=== PATIENT | female | born 1945 | race Caucasian/White ===

== ENCOUNTER → 2018-10-04 | Outpatient (CLI) | payer MEDICARE, OTHER ==
[~2018-10-04] MED LIST: PLAVIX75 MG PO; REGADENOSON 0.4 MG/5 ML SYR IV ONE
--- NOTE | 2018-10-05 15:35 | Cardiology Report ---
DATE OF STUDY: October 04, 2018 PROCEDURE: Nuclear myocardial perfusion scan. Nuclear myocardial perfusion scan is provided by Dr. William Vizcaino and I did the nuclear part of the stress test. Lexiscan injected at 0.4 mg intravenous stress agent. Myoview injected at 10 millicuries for stress protocol and 13 millicuries for stress protocol. IMPRESSION: Abnormal nuclear study. Inferoseptal and apical hypokinesia, which is very severe, and inferoseptal and apical ischemia noted. Abnormal study. Thank you, Dr. William Vizcaino, for this procedure/consultation. Job#: [id number]
== END ==
LOC: NM 09:39
PROVIDERS: ATTEND Internal Medicine Cardiovascular Disease
DX: R06.02 Shortness of breath (principal); I20.8 Other forms of angina pectoris
CPT/HCPCS: 78452; 93017; A9502; J2785

== ENCOUNTER 2020-12-05 06:15 | Observation (INO) | payer MEDICARE, OTHER ==
[2020-12-03 13:26] LABS: BASOPHILS # (AUTO) 0.1 (0.0-0.1); BASOPHILS % 0.4 % (0.0-1.0); EOSINOPHILS # (AUTO) 0.2 (0.0-0.4); EOSINOPHILS % 1.5 % (0.0-6.0); HEMATOCRIT 25.1 % (34.2-44.1); HEMOGLOBIN 7.6 g/dL (12.0-16.0); LYMPHOCYTES # (AUTO) 2.2 (1.0-3.2); LYMPHOCYTES % 19.4 % (18.0-39.1); MEAN CORPUSCULAR HEMOGLOBIN 27.5 pg (28-32); MEAN CORPUSCULAR HGB CONC 30.3 g/dL (31-35); MEAN CORPUSCULAR VOLUME 90.9 fL (81-99); MONOCYTES # (AUTO) 0.8 (0.2-0.8); MONOCYTES % 6.9 % (4.4-11.3); NEUTROPHILS # (AUTO) 8.1 (2.1-6.9); NEUTROPHILS % 71.5 % (38.7-80.0); PLATELET COUNT 412 x10e3/uL (140-360); RED BLOOD COUNT 2.76 x10e6/uL (3.6-5.1); RED CELL DISTRIBUTION WIDTH 17.2 % (11.7-14.4)
[2020-12-03 13:36] LABS: INR 2.03; PROTHROMBIN TIME 24.5 seconds (11.9-14.5)
[2020-12-03 13:43] LABS: ANION GAP 16.2 mmol/L (8-16); CALCIUM 8.9 mg/dL (8.4-10.2); CREATININE, SERUM 0.94 mg/dL (0.57-1.11); POTASSIUM 4.2 mmol/L (3.5-5.1)
[~2020-12-05] VITALS: Ht 198.1 cm; Wt 68.5 kg
[~2020-12-05 06:15] MED LIST changes: +ALLOPURINOL100 MG PO; +ATORVASTATIN CA20 MG PO; +CALAN SR120 MG PO; +CILOSTAZOL50 MG PO; +FAMOTIDINE20 MG PO; +FEROSUL325 MG PO; +FUROSEMIDE40 MG PO; +LYRICA100 MG PO; +NITROGLYCERIN1 EAC1 TD; -REGADENOSON 0.4 MG/5 ML SYR IV ONE; +SPIRONOLACTONE25 MG PO
[2020-12-05 07:02] VITALS: BP 120/67
[2020-12-05 07:39] LABS: BASOPHILS % 0.4 % (0.0-1.0); EOSINOPHILS # (AUTO) 0.2 (0.0-0.4); EOSINOPHILS % 2.1 % (0.0-6.0); HEMATOCRIT 24.4 % (34.2-44.1); HEMOGLOBIN 7.3 g/dL (12.0-16.0); LYMPHOCYTES # (AUTO) 1.3 (1.0-3.2); LYMPHOCYTES % 16.3 % (18.0-39.1); MEAN CORPUSCULAR HEMOGLOBIN 27.9 pg (28-32); MEAN CORPUSCULAR HGB CONC 29.9 g/dL (31-35); MEAN CORPUSCULAR VOLUME 93.1 fL (81-99); MONOCYTES # (AUTO) 0.5 (0.2-0.8); MONOCYTES % 6.7 % (4.4-11.3); NEUTROPHILS % 74.1 % (38.7-80.0); PLATELET COUNT 362 x10e3/uL (140-360); RED BLOOD COUNT 2.62 x10e6/uL (3.6-5.1); RED CELL DISTRIBUTION WIDTH 17.3 % (11.7-14.4)
[2020-12-05 07:49] LABS: INR 1.04; PROTHROMBIN TIME 14.3 seconds (11.9-14.5)
[2020-12-05 07:50] LABS: PARTIAL THROMBOPLASTIN TIME 31.4 seconds (23.8-35.5)
[2020-12-05] MEDS ORDERED: SODIUM CHLORIDE 0.9% 250ML 250 ML IV NR (08:00)
[2020-12-05 08:05] LABS: ALBUMIN 3.5 g/dL (3.5-5.0); ALBUMIN/GLOBULIN RATIO 1.2 (0.8-2.0); ANION GAP 13.7 mmol/L (8-16); CALCIUM 8.4 mg/dL (8.4-10.2); CREATININE, SERUM 1.01 mg/dL (0.57-1.11); POTASSIUM 3.7 mmol/L (3.5-5.1)
[2020-12-05 08:14] LABS: FERRITIN 142.99 ng/mL (4.63-204.00)
[2020-12-05] MEDS ORDERED: SODIUM CHLORIDE 0.9% 250ML 250 ML ONE ×2 (10:01→17:43)
[2020-12-05] MEDS ORDERED: LORAZEPAM INJ 2 MG/ML VIAL ONE (10:25)
[2020-12-05] MEDS ORDERED: CEFAZOLIN SOD 1 GM VIAL ONE (10:26)
[2020-12-05] MEDS ORDERED: FAMOTIDINE 20 MG TAB ONE (10:26)
[2020-12-05] MEDS ORDERED: SODIUM CHLORIDE 0.9% 50ML 50 ML ONE (10:26)
[2020-12-05] MEDS ORDERED: LIDOCAINE HCL 2% LOCAL 20 ML VIAL ONE ×2 (10:28→11:32)
[2020-12-05] MEDS ORDERED: SODIUM CHLORIDE 0.9% 500ML 1,000 ML ONE (10:28)
[2020-12-05] MEDS ORDERED: FENTANYL CITRATE/PF 100MCG/2 ML INJ ONE (10:28)
[2020-12-05] MEDS ORDERED: MIDAZOLAM HCL 2 MG/2 ML VIAL ONE ×2 (10:28→12:26)
[2020-12-05] MEDS ORDERED: VANCOMYCIN 1GM/NS 250 ML 250 ML ONE (11:39)
[2020-12-05 13:28] VITALS: BP 117/59
[2020-12-05 15:44] VITALS: BP 117/59
[2020-12-05 16:00] VITALS: BP 103/53
[2020-12-05] MEDS ORDERED: IRON SUCROSE 100 MG in SODIUM CHLORIDE 0.9% 100 ML 100 ML IV SCH (16:00)
[2020-12-05 16:16] VITALS: BP 117/59
[2020-12-05] MEDS ORDERED: VERAPAMIL ER120 MG PO (16:46)
[2020-12-05] MEDS ORDERED: FEROSUL325 MG PO (16:47)
[2020-12-05] MEDS: CEFAZOLIN SOD 1 GM/NS 50ML 50 ML IV SCH (17:45)
[2020-12-05] MEDS: VERAPAMIL HCL 120 MG TABSR PO SCH (17:45)
[2020-12-05] MEDS: METOPROLOL TARTRATE 25 MG TAB PO SCH (17:46)
[2020-12-05] MEDS ORDERED: CEFAZOLIN SOD 1 GM VIAL IV SCH (18:00)
[2020-12-05 20:00] VITALS: BP 107/62
[2020-12-06] VITALS: BP 114/57
[2020-12-06] MEDS: CEFAZOLIN SOD 1 GM/NS 50ML 50 ML IV SCH ×3 (00:43→12:50)
[2020-12-06 04:00] VITALS: BP 121/70
[2020-12-06 05:37] LABS: BASOPHILS % 0.5 % (0.0-1.0); EOSINOPHILS # (AUTO) 0.2 (0.0-0.4); EOSINOPHILS % 2.4 % (0.0-6.0); HEMATOCRIT 24.7 % (34.2-44.1); HEMOGLOBIN 7.6 g/dL (12.0-16.0); LYMPHOCYTES # (AUTO) 1.5 (1.0-3.2); MEAN CORPUSCULAR HEMOGLOBIN 27.6 pg (28-32); MEAN CORPUSCULAR HGB CONC 30.8 g/dL (31-35); MEAN CORPUSCULAR VOLUME 89.8 fL (81-99); MONOCYTES # (AUTO) 0.6 (0.2-0.8); MONOCYTES % 8.7 % (4.4-11.3); NEUTROPHILS # (AUTO) 4.4 (2.1-6.9); NEUTROPHILS % 66.1 % (38.7-80.0); PLATELET COUNT 352 x10e3/uL (140-360); RED BLOOD COUNT 2.75 x10e6/uL (3.6-5.1); RED CELL DISTRIBUTION WIDTH 18.2 % (11.7-14.4)
[2020-12-06 05:53] LABS: ANION GAP 10.6 mmol/L (8-16); BLOOD UREA NITROGEN 17 mg/dL (7-26); BUN/CREATININE RATIO 22 (6-25); CARBON DIOXIDE 27 mmol/L (22-29); CHLORIDE 107 mmol/L (98-107); CREATININE, SERUM 0.79 mg/dL (0.57-1.11); EST GLOMERULAR FILTRATION RATE > 60 ML/MIN (60-); GLUCOSE 88 mg/dL (74-118); POTASSIUM 3.6 mmol/L (3.5-5.1); SODIUM 141 mmol/L (136-145)
[2020-12-06] MEDS: METOPROLOL TARTRATE 25 MG TAB PO SCH ×3 (06:21→12:51)
[2020-12-06 07:30] VITALS: BP 108/53
[2020-12-06 07:45] VITALS: BP 108/53
[2020-12-06] MEDS: VERAPAMIL HCL 120 MG TABSR PO SCH (08:08)
[2020-12-06 11:46] VITALS: BP 112/63
== END 2020-12-06 15:30 | disposition home or self-care (01) ==
LOC: CATH LAB 06:15 → EDSTATUS 10:00 → CATH LAB V 12:25 → MED/SURG 13:28
PROVIDERS: ADMIT Internal Medicine Cardiovascular Disease; ATTEND Internal Medicine Cardiovascular Disease
DX: I49.5 Sick sinus syndrome (principal); D50.9 Iron deficiency anemia, unspecified; I25.10 Atherosclerotic heart disease of native coronary artery without angina pectoris; Z95.1 Presence of aortocoronary bypass graft; M19.90 Unspecified osteoarthritis, unspecified site; I73.9 Peripheral vascular disease, unspecified; I48.0 Paroxysmal atrial fibrillation; Z20.822 Contact with and (suspected) exposure to COVID-19
CPT/HCPCS: 33208; 33225; 36415 ×3; 71045 ×2; 80048 ×2; 80053; 82728; 83540; 84466; 85025 ×3; 85610 ×2; 85730; 86850; 86900; 86920; G0378 ×2; J0690 ×3; J1756 ×2; J2001; J2060; J2250; J3010; J3370; J7040; J7050; P9016; U0002; 99152; 99153

== ENCOUNTER → 2020-12-10 | Outpatient (CLI) | payer MEDICARE, OTHER ==
[~2020-12-10] MED LIST changes: +VERAPAMIL ER120 MG PO
== END ==
LOC: RAD 13:51
DX: I11.0 Hypertensive heart disease with heart failure (principal); Z95.0 Presence of cardiac pacemaker
CPT/HCPCS: 71046